=== PATIENT | female | born 1985 | race African-American/Black ===

== ENCOUNTER 2022-03-31 17:37 | Emergency (ER) | payer OTHER ==
[~2022-03-31] VITALS: Ht 172.7 cm; Wt 76.0 kg
[2022-03-31 17:40] VITALS: BP 140/98
[2022-03-31] MEDS ORDERED: ONDANSETRON 4MG ODT PO ONE (21:00)
[2022-03-31] MEDS ORDERED: ACETAMINOPHEN 325MG TABLET PO ONE (21:00)
[2022-03-31] MEDS ORDERED: DIPHENOXYLATE/ATROPINE 2.5/0.025MG TABLET PO ONE (21:00)
[2022-03-31] MEDS ORDERED: DIPH1TAB24 MT (21:07)
[2022-03-31 21:19] LABS: CLARITY URINE CLOUDY (CLEAR); COLOR URINE YELLOW (YELLOW); KETONES URINE TRACE (NEGATIVE); LEUKOCYTE ESTERASE URINE NEGATIVE (NEGATIVE); NITRITE URINE NEGATIVE (NEGATIVE); OCCULT BLOOD URINE NEGATIVE (NEGATIVE); PROTEIN URINE NEGATIVE (NEGATIVE); SPECIFIC GRAVITY URINE 1.028 (1.005-1.030); UROBILINOGEN URINE 0.2 E.U./dL (0.2-1.0)
[2022-03-31] MEDS ORDERED: ONDA4TAB11 PO (22:30)
[2022-03-31] MEDS ORDERED: TOPUD PO (22:31)
== END 2022-03-31 22:45 | disposition home or self-care (01) ==
LOC: ER 17:37
DX: K52.9 Noninfective gastroenteritis and colitis, unspecified (principal)
CPT/HCPCS: 81003; 81025; 99283; Q0162